=== PATIENT | female | born 1975 | race Caucasian/White ===

== ENCOUNTER 2017-02-06 09:24 | Emergency (ER) | payer MEDICARE ==
[~2017-02-06] VITALS: Ht 167.6 cm; Wt 85.7 kg
[2017-02-06 09:32] VITALS: BP_SYST 132
[2017-02-06] MEDS ORDERED: PENICILLIN G BENZATHINE 1.2 MMU/2 ML SYR IM ONE (10:00)
[2017-02-06 10:30] VITALS: BP_SYST 132
== END 2017-02-06 10:30 | disposition home or self-care (01) ==
LOC: SED 09:24
DX: J02.0 Streptococcal pharyngitis (principal); H92.09 Otalgia, unspecified ear
CPT/HCPCS: 96372; 99283; J0561

== ENCOUNTER 2017-11-01 07:57 | Emergency (ER) | payer MEDICARE ==
[~2017-11-01] VITALS: Ht 167.6 cm; Wt 81.6 kg
[2017-11-01 08:00] VITALS: BP_SYST 125
[2017-11-01] MEDS ORDERED: ACETAMINOPHEN 500 MG TABLET PO ONE (08:30)
[2017-11-01 09:28] LABS: BILIRUBIN,URINE NEGATIVE (NEGATIVE); BLOOD, URINE NEGATIVE (NEGATIVE); COLOR,URINE YELLOW (YELLOW); GLUCOSE,URINE NEGATIVE (NEGATIVE); KETONES,URINE NEGATIVE (NEGATIVE); LEUKOCYTE ESTERASE ,URINE NEGATIVE (NEGATIVE); NITRITE, URINE NEGATIVE (NEGATIVE); PH,URINE 5.5 (5.0-8.0); PROTEIN URINE NEGATIVE (NEGATIVE); UROBILINOGEN,URINE 0.2 (0.2-1.0)
[2017-11-01 09:32] LABS: CLARITY/URINE CLEAR (CLEAR)
[2017-11-01 10:25] VITALS: BP_SYST 138
== END 2017-11-01 10:25 | disposition home or self-care (01) ==
LOC: SED 07:57
DX: K59.00 Constipation, unspecified (principal); M54.9 Dorsalgia, unspecified; R03.0 Elevated blood-pressure reading, without diagnosis of hypertension
CPT/HCPCS: 71045; 74018; 81003; 81025; 99285

== ENCOUNTER 2017-12-05 09:35 | Emergency (ER) | payer MEDICARE ==
[~2017-12-05] VITALS: Ht 167.6 cm; Wt 77.6 kg
[2017-12-05 09:39] VITALS: BP_SYST 133
[2017-12-05 10:00] VITALS: BP_SYST 133
== END 2017-12-05 10:00 | disposition home or self-care (01) ==
LOC: SED 09:35
DX: J20.9 Acute bronchitis, unspecified (principal); R11.10 Vomiting, unspecified; R19.7 Diarrhea, unspecified
CPT/HCPCS: 99283

== ENCOUNTER 2023-11-12 03:11 | Emergency (ER) | payer BC, MEDICARE ==
[~2023-11-12] VITALS: Ht 165.1 cm; Wt 127.0 kg
[2023-11-12 03:39] VITALS: BP_SYST 136; PULSE 87; RESP 18; TEMP 97; O2SAT 97
[2023-11-12] MEDS ORDERED: PRED20TA PO (05:24)
[2023-11-12] MEDS ORDERED: BENZ100C92 PO (05:24)
[2023-11-12] MEDS: IPRATROPIUM/ALBUTEROL SULFATE 3 ML AMPUL.NEB (DUONEB) INH ONE (05:26)
[2023-11-12 07:02] VITALS: BP_SYST 135; PULSE 81; RESP 18; TEMP 98.6; O2SAT 97
== END 2023-11-12 07:07 | disposition home or self-care (01) ==
LOC: SED 03:11
DX: R06.02 Shortness of breath (principal); R05.9 Cough, unspecified; Z79.899 Other long term (current) drug therapy
CPT/HCPCS: 71046; 93005; 94640; 99285

== ENCOUNTER 2023-11-12 22:13 | Emergency (ER) | payer BC ==
[~2023-11-12] VITALS: Ht 165.1 cm; Wt 127.0 kg
[~2023-11-12 22:13] MED LIST: BENZ100C92 PO; PRED20TA PO
[2023-11-12 22:30] VITALS: BP_SYST 146; PULSE 17; RESP 17; TEMP 97.6; O2SAT 97
[2023-11-12] MEDS: LORazepam 1 MG TABLET PO ONE (23:44)
[2023-11-12 23:50] VITALS: BP_SYST 143; PULSE 69; RESP 17; TEMP 97.7; O2SAT 98
== END 2023-11-12 23:48 | disposition home or self-care (01) ==
LOC: SED 22:13
DX: R06.02 Shortness of breath (principal); F41.9 Anxiety disorder, unspecified; J45.909 Unspecified asthma, uncomplicated; Z79.899 Other long term (current) drug therapy
CPT/HCPCS: 99281